=== PATIENT | female | born 1960 | race Caucasian/White ===

== ENCOUNTER 2016-10-15 09:14 | Emergency (ER) | payer OTHER ==
--- NOTE | 2016-10-15 09:53 | ED ORDER SUMMARY ---
..... Patient: KELLIE SULLIVAN OrderSheet [facility] VisitID: [id number] [address] [place] [address] 55y, F Registration Date/Time: 10/15/2016 ORDER SHEET Weight: 58.9 kg (stated) Allergies: Codeine, Metoclopramide, Promethazine , Toradol GENERAL ORDERS: MEDICATION ORDERS: Zofran ODT PO 4 mg (NOW) (09:40 10/15/2016 Liv Hernandez) (Ack 9:57 MWinterer R.N.) (10:02 MWinterer R.N.) Dilaudid IM 2 mg (HIGH ALERT MEDICATION, NOW) (:40 10/15/2016 Liv Hernandez) (Ack 9:57 MWinterer R.N.) (10:02 MWinterer R.N.) IV FLUIDS: ORDER SHEET NOTES: [Electronically signed by Lindsey Oneil R.N. (12:03 10/15/2016)] [Electronically signed by Brice Crawford Dr. (12:38 10/15/2016)] [Electronically locked/signed by Lindsey Oneil R.N. (12:03 10/15/2016)]
--- NOTE | 2016-10-15 09:53 | ED NURSING NOTES ---
Clinical Report - Nurses [facility] [address] [place] [address] 10/15/2016 9:15 Patient: KELLIE SULLIVAN TRIAGE Acuity: LEVEL 3. Chief Complaint: MIGRAINE HEADACHE. Alert. No acute distress. SEPSIS SCREEN: Sepsis Screen. Negative (no infection suspected/documented). PIO COMA SCORE: Pio Coma Scale: 15- eyes open spontaneously (4); best verbal response- oriented x 4 (5); best motor response- obeys commands (6). --09:32 Lindsey Oneil R.N. 09:26 10/15/16. BP: 137/76. HR: 76. RR: 16. O2 saturation: 100%. Temp: 98 F (oral). Pain level now: 07/24. --09:32 Lindsey Oneil R.N. Weight: 58.9 kg stated. Height/Length: 67 inches Per Patient. BMI: 20.4. --09:31 Lindsey Oneil R.N. Medications Compazine Oral. Lisinopril Oral. Tramadol HCL Oral. TraZODone HCl Oral. Zofran Oral. --09:30 Lindsey Oneil R.N. Medication/allergy information source: the patient. --09:32 Lindsey Oneil R.N. Allergies Codeine.(nausea) Metoclopramide.(anxiety) Promethazine . ("jumping out of skin") Toradol. ("jumping out of skin") --09:30 Lindsey Oneil R.N. History Arrived by EMS. Historian: EMS and patient. Unaccompanied. This started last night. Describes the quality as "pain" and sharp. ( Pt states worst migraine headache she has ever had.). She has had nausea and vomiting. Treatment STARTER CUP POWDER MIXER: EMS treatment STARTER CUP POWDER MIXER verbally communicated. Finger stick glucose performed (160). BP: 126/82. HR: 97. Temp: 97.9 (oral). O2 saturation: 99. PAST MEDICAL HX: The patient has had a hysterectomy. SOCIAL HX: Never smoker. History of occasional drug use: marijuana. No alcohol use. NUTRITIONAL RISK ASSESSMENT: The nutritional risk assessment revealed no deficiencies. FUNCTIONAL ASSESSMENT: Functional assessment: no impairments noted. LEARNING NEEDS ASSESSMENT: The learning needs assessment revealed no barriers. SKIN INTEGRITY ASSESSMENT: Skin integrity risk assessment completed. No skin integrity risk identified. --09:32 Lindsey Oneil R.N. PROBLEMS: Diarrhea. Vomiting. Neck Pain. Hypertension. Migraine Headache. --09:30 Lindsey Oneil R.N. ADDITIONAL SURGERIES: Clavicle. Hysterectomy. Neck Surgery. --09:30 Lindsey Oneil R.N. Assessment GENERAL / NEURO / PSYCH: Alert. Oriented X 4. Appears in no acute distress. Patient appears calm and cooperative. RESPIRATORY: Respirations not labored. CVS: Capillary refill less than 2 seconds. GI / : Abdomen soft and nontender. SKIN: Mucous membranes are pink. Skin is warm and dry. --09:32 Lindsey Oneil R.N. Interventions ID band on patient. To treatment room. --09:32 Lindsey Oneil R.N. PHYSICAL ASSESSMENT To room via stretcher. GENERAL / NEURO / PSYCH: Alert. Oriented X 4. Appears in no acute distress. Appears anxious. Speech within normal limits. HEENT: No facial asymmetry noted. Pupils equal, round and reactive to light. RESPIRATORY: Respirations not labored. CVS: Capillary refill less than 2 seconds. GI / : Abdomen soft. SKIN: Skin is warm and dry. --09:33 Lindsey Oneil R.N. NURSING PROGRESS NOTES 09:33 10/15/16. Patient gowned. Lights dimmed. Two patient identifiers checked. Call light placed in reach. Side rails up x 2. Bed placed in lowest position. Brakes of bed on. Patient ready for evaluation- chart flagged and ED physician notified. --09:33 Lindsey Oneil R.N. 09:36 10/15/16. ( Pt states "I like dilaudid. It works the best for me."). --09:36 Lindsey Oneil R.N. 10:01 10/15/2016 Zofran ODT (Ondansetron) PO 4 mg given. Allergies verified and confirmed 5 rights. --10:02 Lindsey Oneil R.N. 10:02 10/15/2016 Dilaudid (HYDROmorphone HCl PF) IM 2 mg given. Given in the left deltoid. Allergies verified, confirmed 5 rights and sedative warning given to the patient. --10:02 Lindsey Oneil R.N. DISPOSITION / DISCHARGE 10:37 10/15/16. BP: 137/76. HR: 82. RR: 16. O2 saturation: 100%. Temp: 98 F (oral). Pain level now: 04/23. --10:37 Lindsey Oneil R.N. Departure time: 10:50 Oct 15 2016. Condition at departure: improved and stable. No learning barriers present. Discharge instructions provided and reviewed with the patient. Reviewed medication(s) side effects, precautions and dosing information. Prescription(s) given to the patient (fioricet and zofran). Patient verbalized understanding. Written instructions provided in Malay. The patient was discharged by the physician. She was discharged home and accompanied by roof plumber. She left the Emergency Department ambulatory and via private vehicle. Beekeeper driving. --12:03 Lindsey Oneil R.N. Locked/Released at 10/15/2016 12:03 by Lindsey Oneil R.N.
--- NOTE | 2016-10-15 09:53 | ED NURSING NOTES ---
Clinical Report - Nurses [facility] [address] [place] [address] 10/15/2016 9:15 Patient: KELLIE SULLIVAN TRIAGE Acuity: LEVEL 3. Chief Complaint: MIGRAINE HEADACHE. Alert. No acute distress. SEPSIS SCREEN: Sepsis Screen. Negative (no infection suspected/documented). PIO COMA SCORE: Pio Coma Scale: 15- eyes open spontaneously (4); best verbal response- oriented x 4 (5); best motor response- obeys commands (6). --09:32 Lindsey Oneil R.N. 09:26 10/15/16. BP: 137/76. HR: 76. RR: 16. O2 saturation: 100%. Temp: 98 F (oral). Pain level now: 07/24. --09:32 Lindsey Oneil R.N. Weight: 58.9 kg stated. Height/Length: 67 inches Per Patient. BMI: 20.4. --09:31 Lindsey Oneil R.N. Medications Compazine Oral. Lisinopril Oral. Tramadol HCL Oral. TraZODone HCl Oral. Zofran Oral. --09:30 Lindsey Oneil R.N. Medication/allergy information source: the patient. --09:32 Lindsey Oneil R.N. Allergies Codeine.(nausea) Metoclopramide.(anxiety) Promethazine . ("jumping out of skin") Toradol. ("jumping out of skin") --09:30 Lindsey Oneil R.N. History Arrived by EMS. Historian: EMS and patient. Unaccompanied. This started last night. Describes the quality as "pain" and sharp. ( Pt states worst migraine headache she has ever had.). She has had nausea and vomiting. Treatment LEASE ANALYST: EMS treatment LEASE ANALYST verbally communicated. Finger stick glucose performed (160). BP: 126/82. HR: 97. Temp: 97.9 (oral). O2 saturation: 99. PAST MEDICAL HX: The patient has had a hysterectomy. SOCIAL HX: Never smoker. History of occasional drug use: marijuana. No alcohol use. NUTRITIONAL RISK ASSESSMENT: The nutritional risk assessment revealed no deficiencies. FUNCTIONAL ASSESSMENT: Functional assessment: no impairments noted. LEARNING NEEDS ASSESSMENT: The learning needs assessment revealed no barriers. SKIN INTEGRITY ASSESSMENT: Skin integrity risk assessment completed. No skin integrity risk identified. --09:32 Lindsey Oneil R.N. PROBLEMS: Diarrhea. Vomiting. Neck Pain. Hypertension. Migraine Headache. --09:30 Lindsey Oneil R.N. ADDITIONAL SURGERIES: Clavicle. Hysterectomy. Neck Surgery. --09:30 Lindsey Oneil R.N. Assessment GENERAL / NEURO / PSYCH: Alert. Oriented X 4. Appears in no acute distress. Patient appears calm and cooperative. RESPIRATORY: Respirations not labored. CVS: Capillary refill less than 2 seconds. GI / : Abdomen soft and nontender. SKIN: Mucous membranes are pink. Skin is warm and dry. --09:32 Lindsey Oneil R.N. Interventions ID band on patient. To treatment room. --09:32 Lindsey Oneil R.N. PHYSICAL ASSESSMENT To room via stretcher. GENERAL / NEURO / PSYCH: Alert. Oriented X 4. Appears in no acute distress. Appears anxious. Speech within normal limits. HEENT: No facial asymmetry noted. Pupils equal, round and reactive to light. RESPIRATORY: Respirations not labored. CVS: Capillary refill less than 2 seconds. GI / : Abdomen soft. SKIN: Skin is warm and dry. --09:33 Lindsey Oneil R.N. NURSING PROGRESS NOTES 09:33 10/15/16. Patient gowned. Lights dimmed. Two patient identifiers checked. Call light placed in reach. Side rails up x 2. Bed placed in lowest position. Brakes of bed on. Patient ready for evaluation- chart flagged and ED physician notified. --09:33 Lindsey Oneil R.N. 09:36 10/15/16. ( Pt states "I like dilaudid. It works the best for me."). --09:36 Lindsey Oneil R.N. 10:01 10/15/2016 Zofran ODT (Ondansetron) PO 4 mg given. Allergies verified and confirmed 5 rights. --10:02 Lindsey Oneil R.N. 10:02 10/15/2016 Dilaudid (HYDROmorphone HCl PF) IM 2 mg given. Given in the left deltoid. Allergies verified, confirmed 5 rights and sedative warning given to the patient. --10:02 Lindsey Oneil R.N. DISPOSITION / DISCHARGE 10:37 10/15/16. BP: 137/76. HR: 82. RR: 16. O2 saturation: 100%. Temp: 98 F (oral). Pain level now: 04/23. --10:37 Lindsey Oneil R.N. Departure time: 10:50 Oct 15 2016. Condition at departure: improved and stable. No learning barriers present. Discharge instructions provided and reviewed with the patient. Reviewed medication(s) side effects, precautions and dosing information. Prescription(s) given to the patient (fioricet and zofran). Patient verbalized understanding. Written instructions provided in Lao. The patient was discharged by the physician. She was discharged home and accompanied by middle school band teacher. She left the Emergency Department ambulatory and via private vehicle. Thread Machine Operator driving. --12:03 Lindsey Oneil R.N. Locked/Released at 10/15/2016 12:03 by Lindsey Oneil R.N.
--- NOTE | 2016-10-15 09:53 | ED CLINICAL REPORT ---
Clinical Report - Physicians/Mid Levels [facility] [address] [place] [address] 10/15/2016 9:15 Patient: KELLIE SULLIVAN Arrived- By ambulance. Historian- patient and EMS personnel. HISTORY OF PRESENT ILLNESS Is still present (staying the same). Chief Complaint: HEADACHE. This started today. It was gradual in onset and has been constant but is not gone now. Patient was last known well (yesterday). Onset during rest. It is described as similar to previous headaches. Has had posterior neck pain (chronic) and located in the occipital region. At its maximum, severity described as severe. When seen in the E.D., severity described as severe. Modifying factors: worsened by general movement; (relieved by "dilaudid"). (Patient personally O changes, numbness, tingling, weakness.). Similar symptoms previously: Several times. Recent medical care: Not recently seen/assessed. REVIEW OF SYSTEMS No chest pain, difficulty breathing or skin rash. All systems otherwise negative, except as recorded above. PAST HISTORY See nurses notes. SOCIAL HISTORY Never smoker. History of occasional drug use: marijuana. No alcohol use. Is a local resident. FAMILY HISTORY No history of migraine headaches. ADDITIONAL NOTES The nursing notes have been reviewed. PHYSICAL EXAM Vital Signs: 10/15/2016 09:26 BP: 137/76. HR: 76. RR: 16. O2 saturation: 100%. Temp: 98 F. Pain level now: 10/10. Appearance: Alert. No acute distress. Eyes: Pupils equal, round and reactive to light. Eyes normal inspection. (no papilledema. normal retinal vasculature.). ENT: Ears normal. Nose normal. Pharynx normal. Neck: Normal inspection. Neck supple. No meningeal signs. CVS: Normal heart rate and rhythm. Heart sounds normal. Pulses normal. Respiratory: No respiratory distress. Breath sounds normal. Abdomen: Soft and nontender. No organomegaly. Back: Normal inspection. Skin: Skin warm and dry. Normal skin color. No rash. Normal skin turgor. Extremities: Extremities exhibit normal ROM. No lower extremity edema. Neuro: Oriented X 3. Alert. Mood/affect normal. Speech normal. Cranial nerves normal (as tested). No cerebellar findings. No motor deficit. No sensory deficit. PROGRESS AND PROCEDURES Course of Care: patient with headache. hx of headache. same as headaches before. states it is worse today. no other symptoms. states "I need surgery on my neck to fix this." Patient asked what helps her headaches. States "dilaudid" helps. Asked about other medications for the headache including "migraine" type headaches. Patient reports she would like dilaudid instead. no other symptoms. no fever. no neuro def. do not think patient has SAH, increased ICP, Mass, or meningitis. Patient reevaluated after administration of medication. Patient reports feeling actually better. No signs of meningitis or focal neurological deficits. Patient does have a BARBI alert. Concern for patient usingnarcotics. Do not feel comfortable providing patient with prescription for narcotics. Because I had a discussion with the patient earlier in regards to her headache medication and patient elected to have narcotics, patient's past medical records were reviewed and are hospital. Patient has been here only one other time. Had discussion with patient in regards to hospital policy regarding narcotic prescriptions. Patient still elected for narcotics. Patient is aware that if has a 3 visits within 1 year for narcotic type medications in the emergency department, she will no longer be allowed to have narcotics In the emergency department. Patient is agreeable to the treatment plan. Discussed the patient workup, diagnosis, home care, follow-up, and return precautions. All questions answered. Patient expresses understanding of these instructions and was agreeable to them. Disposition: Discharged. Condition: good. CLINICAL IMPRESSION Acute headache. 10/15/2016 09:26 BP: 137/76. HR: 76. RR: 16. O2 saturation: 100%. Temp: 98 F. Pain level now: 10/10. Blood pressure normal. Oxygen saturation normal. INSTRUCTIONS Warnings: GENERAL WARNINGS: Return or contact your physician immediately if your condition worsens or changes unexpectedly, if not improving as expected, or if other problems arise. SPECIFICALLY, return if you develop fever, vomiting, numbness, weakness, difficulty thinking, visual disturbances, fainting or extreme fatigue. Your Current Medications: CONTINUE TAKING THE FOLLOWING MEDICATIONS: Compazine Oral. Lisinopril Oral. Tramadol HCL Oral. TraZODone HCl Oral. Zofran Oral. Prescription Medications: Zofran ODT 4 mg: take 1 orally every 8 hours as needed for nausea and vomiting. Dispense ten (10). No refill. Substitution is permissible. Fioricet: take 1 orally every 8 hours as needed for pain or headache. Dispense twenty (20). No refills. Substitution is permissible. Follow-up: Return to the emergency department as needed. Follow up with your doctor in one day. Reason for referral: recheck today's concerns. Summary of care provided to patient via paper. Screening today revealed the patient's blood pressure to be in the normal range. The patient should follow up with a primary care provider for blood pressure management. Understanding of the discharge instructions verbalized by patient. (Electronically signed by Brice Crawford Dr. 10/15/2016 12:38)
--- NOTE | 2016-10-15 09:53 | ED ORDER SUMMARY ---
..... Patient: KELLIE SULLIVAN OrderSheet [facility] VisitID: [id number] [address] [place] [address] 55y, F Registration Date/Time: 10/15/2016 ORDER SHEET Weight: 58.9 kg (stated) Allergies: Codeine, Metoclopramide, Promethazine , Toradol GENERAL ORDERS: MEDICATION ORDERS: Zofran ODT PO 4 mg (NOW) (09:40 10/15/2016 Liv Hernandez) (Ack 9:57 MWinterer R.N.) (10:02 MWinterer R.N.) Dilaudid IM 2 mg (HIGH ALERT MEDICATION, NOW) (:40 10/15/2016 Liv Hernandez) (Ack 9:57 MWinterer R.N.) (10:02 MWinterer R.N.) IV FLUIDS: ORDER SHEET NOTES: [Electronically signed by Lindsey Oneil R.N. (12:03 10/15/2016)] [Electronically signed by Brice Crawford Dr. (12:38 10/15/2016)] [Electronically locked/signed by Lindsey Oneil R.N. (12:03 10/15/2016)]
--- NOTE | 2016-10-15 12:39 | ED MED RECONCILIATION SUMMARY ---
Patient: KELLIE SULLIVAN Medication Reconciliation Report [facility] VisitID: [id number] [address] [place] [address] 55y, F Registration Date/Time: 10/15/2016 Weight: 58.9 kg Height/Length: 67 in. BMI: 20.4 ALLERGIES: Codeine, Metoclopramide, Promethazine , Toradol The patient's Home Medications are listed below: CONTINUE TAKING THE FOLLOWING MEDICATIONS: Compazine Oral Lisinopril Oral Tramadol HCL Oral TraZODone HCl Oral Zofran Oral The source(s) of the original Home Medication information: patient The following Medications were given to the patient in the Emergency Department: Zofran ODT [PO] PO 4 mg, administered: 10/15/2016 10:01:00 AM Dilaudid [IM] IM 2 mg, administered: 10/15/2016 10:02:00 AM The following Medications were prescribed to the patient: Zofran ODT 4 mg: take 1 orally every 8 hours as needed for nausea and vomiting. Dispense ten (10). No refill. Substitution is permissible. -- Brice Crawford Dr. Fioricet: take 1 orally every 8 hours as needed for pain or headache. Dispense twenty (20). No refills. Substitution is permissible. -- Brice Crawford Dr.
--- NOTE | 2016-10-15 12:39 | ED MAR SUMMARY ---
..... Medication Administration Record [facility] [address] [place] [address] Patient: KELLIE SULLIVAN Visit ID: [id number] 55y, F Weight: 58.9 kg Height/Length: 67 in BMI: 20.4 ALLERGIES: Codeine, Metoclopramide, Promethazine , Toradol Given 10:10/15/2016 Lindsey Oneil RJannetN. Medication Administered: ZOFRAN ODT [PO] (ONDANSETRON), Dose: 4 mg PO. Medication Ordered: Zofran ODT PO 4 mg (NOW). Given 10:02 10/15/2016 Lindsey Oneil, RJannetN. Medication Administered: DILAUDID [IM] (HYDROMORPHONE HCL PF), Dose: 2 mg IM. Medication Ordered: Dilaudid IM 2 mg (HIGH ALERT MEDICATION, NOW).
--- NOTE | 2016-10-15 12:39 | ED MED RECONCILIATION SUMMARY ---
Patient: KELLIE SULLIVAN Medication Reconciliation Report [facility] VisitID: [id number] [address] [place] [address] 55y, F Registration Date/Time: 10/15/2016 Weight: 58.9 kg Height/Length: 67 in. BMI: 20.4 ALLERGIES: Codeine, Metoclopramide, Promethazine , Toradol The patient's Home Medications are listed below: CONTINUE TAKING THE FOLLOWING MEDICATIONS: Compazine Oral Lisinopril Oral Tramadol HCL Oral TraZODone HCl Oral Zofran Oral The source(s) of the original Home Medication information: patient The following Medications were given to the patient in the Emergency Department: Zofran ODT [PO] PO 4 mg, administered: 10/15/2016 10:01:00 AM Dilaudid [IM] IM 2 mg, administered: 10/15/2016 10:02:00 AM The following Medications were prescribed to the patient: Zofran ODT 4 mg: take 1 orally every 8 hours as needed for nausea and vomiting. Dispense ten (10). No refill. Substitution is permissible. -- Brice Crawford Dr. Fioricet: take 1 orally every 8 hours as needed for pain or headache. Dispense twenty (20). No refills. Substitution is permissible. -- Brice Crawford Dr.
--- NOTE | 2016-10-15 12:39 | ED DISCHARGE INSTRUCTIONS ---
Patient: KELLIE SULLIVAN General Instructions [facility] VisitID: [id number] [place] [address] 55y, F Registration Date/Time: 10/15/2016 Acute headache. 10/15/2016 09:26 BP: 137/76. HR: 76. RR: 16. O2 saturation: 100%. Temp: 98 F. Pain level now: 1010. Blood pressure normal. Oxygen saturation normal. INSTRUCTIONS Warnings: GENERAL WARNINGS: Return or contact your physician immediately if your condition worsens or changes unexpectedly, if not improving as expected, or if other problems arise. SPECIFICALLY, return if you develop fever, vomiting, numbness, weakness, difficulty thinking, visual disturbances, fainting or extreme fatigue. Your Current Medications: CONTINUE TAKING THE FOLLOWING MEDICATIONS: Compazine Oral. Lisinopril Oral. Tramadol HCL Oral. TraZODone HCl Oral. Zofran Oral. Prescription Medications: Zofran ODT 4 mg: take 1 orally every 8 hours as needed for nausea and vomiting. Dispense ten (10). No refill. Substitution is permissible. Fioricet: take 1 orally every 8 hours as needed for pain or headache. Dispense twenty (20). No refills. Substitution is permissible. Follow-up: Return to the emergency department as needed. Follow up with your doctor in one day. Reason for referral: recheck today's concerns. Summary of care provided to patient via paper. Screening today revealed the patient's blood pressure to be in the normal range. The patient should follow up with a primary care provider for blood pressure management. Understanding of the discharge instructions verbalized by patient. ADDITIONAL INFORMATION Headache [Unspecified] The cause of your headache today is not clear, but it does not appear to be the sign of any serious illness. Under stress, some people tense the muscles of their shoulder, neck and scalp without knowing it. If this condition lasts long enough, a TENSION HEADACHE can occur. A MIGRAINE HEADACHE is caused by changes in blood flow to the brain. A migraine attack may be triggered by emotional stress, hormone changes during the menstrual cycle, oral contraceptives, alcohol use, certain foods containing tyramine, eye strain, weather changes, missing meals, lack of sleep or oversleeping. Other causes of headache include a viral illness with high fever, head injury with concussion, sinus, ear or throat infection, dental pain and TMJ (jaw joint) pain. More serious but less common causes of headache include stroke, brain hemorrhage, brain tumor, meningitis and encephalitis. Home Care: If you were given pain medicine for this headache, do not drive yourself home. Arrange for a ride, instead. When you get home, try to sleep. You should feel much better when you wake up. Apply heat to the back of your neck to relieve neck muscle spasm. Migraine headaches may respond best to an ice pack on the forehead or at the base of the skull. If you are having nausea or vomiting, follow a light diet until your headache is relieved. If you have a migraine type headache, use sunglasses when in the daylight or around bright indoor lighting until symptoms improve. Bright glaring light can worsen this kind of headache. Follow Up with your doctor if the headache is not better within the next 24 hours. If you have frequent headaches you should discuss a treatment plan with your primary care doctor. By being aware of the earliest signs of headache, and starting treatment right away, you may be able to stop the pain yourself. Get Prompt Medical Attention if any of the following occur: Worsening of your head pain or no improvement within 24 hours Repeated vomiting (unable to keep liquids down) Fever of 100.4F (38C) or higher, or as directed by your healthcare provider Stiff neck Extreme drowsiness, confusion or fainting Dizziness, vertigo (dizziness with spinning sensation) Weakness of an arm or leg or one side of the face Difficulty with speech or vision Ondansetron Oral disintegrating tablet What is this medicine? ONDANSETRON (on BETSY se abbi) is used to treat nausea and vomiting caused by chemotherapy. It is also used to prevent or treat nausea and vomiting after surgery. How should I use this medicine? These tablets are made to dissolve in the mouth. Do not try to push the tablet through the foil backing. With dry hands, peel away the foil backing and gently remove the tablet. Place the tablet in the mouth and allow it to dissolve, then swallow. While you may take these tablets with water, it is not necessary to do so. Talk to your digital content specialist regarding the use of this medicine in children. Special care may be needed. What side effects may I notice from receiving this medicine? Side effects that you should report to your doctor or health youth career specialist as soon as possible: allergic reactions like skin rash, itching or hives, swelling of the face, lips, or tongue breathing problems dizziness fast or irregular heartbeat feeling faint or lightheaded, falls fever and chills swelling of the hands and feet tightness in the chest Side effects that usually do not require medical attention (report to your doctor or health youth career specialist if they continue or are bothersome): constipation or diarrhea headache What may interact with this medicine? Do not take this medicine with any of the following medications: -apomorphine -cisapride -dofetilide -dronedarone -pimozide -thioridazine -ziprasidone This medicine may also interact with the following medications: -carbamazepine -phenytoin -rifampicin -tramadol -other medicines that prolong the QT interval (cause an abnormal heart rhythm) What if I miss a dose? If you miss a dose, take it as soon as you can. If it is almost time for your next dose, take only that dose. Do not take double or extra doses. Where should I keep my medicine? Keep out of the reach of children. Store between 2 and 30 degrees C (36 and 86 degrees F). Throw away any unused medicine after the expiration date. What should I tell my health care provider before I take this medicine? They need to know if you have any of these conditions: heart disease history of irregular heartbeat liver disease low levels of magnesium or potassium in the blood an unusual or allergic reaction to ondansetron, granisetron, other medicines, foods, dyes, or preservatives or trying to get breast-feeding What should I watch for while using this medicine? Check with your doctor or health youth career specialist as soon as you can if you have any sign of an allergic reaction. Butalbital, Acetaminophen, Caffeine Oral tablet What is this medicine? ACETAMINOPHEN; BUTALBITAL; CAFFEINE (a set a ROSALBA yamila fen; byoo ANSHUL jimmie anshul; KAF een) is a pain reliever. It is used to treat tension headaches. How should I use this medicine? Take this medicine by mouth with a full glass of water. Follow the directions on the prescription label. If the medicine upsets your stomach, take the medicine with food or milk. Do not take more than you are told to take. Talk to your digital content specialist regarding the use of this medicine in children. Special care may be needed. What side effects may I notice from receiving this medicine? Side effects that you should report to your doctor or health youth career specialist as soon as possible: allergic reactions like skin rash, itching or hives, swelling of the face, lips, or tongue breathing problems confusion feeling faint or lightheaded, falls redness, blistering, peeling or loosening of the skin, including inside the mouth seizure stomach pain yellowing of the eyes or skin Side effects that usually do not require medical attention (report to your doctor or health youth career specialist if they continue or are bothersome): constipation nausea, vomiting What may interact with this medicine? alcohol or medicines that contain alcohol antidepressants, especially MAOIs like isocarboxazid, phenelzine, tranylcypromine, and selegiline antihistamines benzodiazepines carbamazepine isoniazid medicines for pain like pentazocine, buprenorphine, butorphanol, nalbuphine, tramadol, and propoxyphene muscle relaxants naltrexone phenobarbital, phenytoin, and fosphenytoin phenothiazines like perphenazine, thioridazine, chlorpromazine, mesoridazine, fluphenazine, prochlorperazine, promazine, and trifluoperazine voriconazole What if I miss a dose? If you miss a dose, take it as soon as you can. If it is almost time for your next dose, take only that dose. Do not take double or extra doses. Where should I keep my medicine? Keep out of the reach of children. This medicine can be abused. Keep your medicine in a safe place to protect it from theft. Do not share this medicine with anyone. Selling or giving away this medicine is dangerous and against the law. Store at room temperature between 15 and 30 degrees C (59 and 86 degrees F). Keep container tightly closed. Protect from light. Throw away any unused medicine after the expiration date. What should I tell my health care provider before I take this medicine? They need to know if you have any of these conditions: drink more than 3 alcohol-containing drinks per day drug abuse or addiction heart or circulation problems kidney disease or problems going to the bathroom liver disease lung disease, asthma, or breathing problems porphyria an unusual or allergic reaction to acetaminophen, butalbital or other barbiturates, caffeine, other medicines, foods, dyes, or preservatives or trying to get breast-feeding What should I watch for while using this medicine? Tell your doctor or health youth career specialist if your pain does not go away, if it gets worse, or if you have new or a different type of pain. You may develop tolerance to the medicine. Tolerance means that you will need a higher dose of the medicine for pain relief. Tolerance is normal and is expected if you take the medicine for a long time. Do not suddenly stop taking your medicine because you may develop a severe reaction. Your body becomes used to the medicine. This does NOT mean you are addicted. Addiction is a behavior related to getting and using a drug for a non-medical reason. If you have pain, you have a medical reason to take pain medicine. Your doctor will tell you how much medicine to take. If your doctor wants you to stop the medicine, the dose will be slowly lowered over time to avoid any side effects. You may get drowsy or dizzy when you first start taking the medicine or change doses. Do not drive, use machinery, or do anything that may be dangerous until you know how the medicine affects you. Stand or sit up slowly. Do not take other medicines that contain acetaminophen with this medicine. Always read labels carefully. If you have questions, ask your doctor or pharmacist. If you take too much acetaminophen get medical help right away. Too much acetaminophen can be very dangerous and cause liver damage. Even if you do not have symptoms, it is important to get help right away. You have been given the following additional information: Headache, Unspecified Ondansetron Oral disintegrating tablet Butalbital, Acetaminophen, Caffeine Oral tablet (Electronically signed by Brice Crawford Dr. 10/15/2016 12:38)
--- NOTE | 2016-10-15 12:39 | ED MAR SUMMARY ---
..... Medication Administration Record [facility] [address] [place] [address] Patient: KELLIE SULLIVAN Visit ID: [id number] 55y, F Weight: 58.9 kg Height/Length: 67 in BMI: 20.4 ALLERGIES: Codeine, Metoclopramide, Promethazine , Toradol Given 10:10/15/2016 Lindsey Oneil RJannetN. Medication Administered: ZOFRAN ODT [PO] (ONDANSETRON), Dose: 4 mg PO. Medication Ordered: Zofran ODT PO 4 mg (NOW). Given 10:02 10/15/2016 Lindsey Oneil, RJannetN. Medication Administered: DILAUDID [IM] (HYDROMORPHONE HCL PF), Dose: 2 mg IM. Medication Ordered: Dilaudid IM 2 mg (HIGH ALERT MEDICATION, NOW).
== END 2016-10-15 10:50 | disposition home or self-care (01) ==
LOC: ED SRH 09:14
DX: R51 Headache (principal); I10 Essential (primary) hypertension; Z79.891 Long term (current) use of opiate analgesic; Z79.899 Other long term (current) drug therapy; Z88.5 Allergy status to narcotic agent; Z88.6 Allergy status to analgesic agent; Z88.8 Allergy status to other drugs, medicaments and biological substances